=== PATIENT | female | born 1970 | race Caucasian/White ===

== ENCOUNTER 2022-05-23 13:45 | Outpatient (REF) | payer BC, SELFPAY ==
[2022-05-23 13:57] LABS: MANUAL DIFF FLAG NO
[2022-05-23 16:02] LABS: Basophils Percent Auto 0.5 % (0-2); Eosinophils Absolute Auto 0.1 X10*3/uL (0.0-0.4); Eosinophils Percent Auto 1.1 % (0-4); Hematocrit 39.9 % (37.0-47.0); Hemoglobin 12.8 g/dl (12.0-16.0); Imm Gran Abs Auto 0.02 X10*3/uL (0.00-0.03); Imm Gran Pct Auto 0.3 % (0.0-0.4); Lymphocytes Absolute Auto 1.8 X10*3/uL (1.2-4.9); Lymphocytes Percent Auto 24.2 % (20-40); Mean Corpuscular HGB Conc 32.1 g/dl (31.0-35.0); Mean Corpuscular Hemoglobin 28.6 pg (27.0-33.0); Mean Corpuscular Volume 89.3 fL (80.0-98.0); Mean Platelet Volume 10.2 fL (9.4-12.3); Monocytes Absolute Auto 0.5 X10*3/uL (0.1-1.2); Monocytes Percent Auto 7.1 % (2-11); Neutrophils Absolute Auto 5.1 x10*3/uL (2.0-8.3); Neutrophils Percent Auto 66.8 % (45-73); Platelet Count 333 X10*3/uL (160-400); Red Blood Count 4.47 X10*6/uL (4.20-5.50); Red Cell Distribution Width 13.2 % (11.0-16.0); White Blood Count 7.6 X10*3/uL (4.8-10.8)
[2022-05-23 16:28] LABS: Alanine Aminotransferase 15 U/L (0-31); Albumin Level 4.6 g/dL (3.5-5.0); Alkaline Phosphatase 65 U/L (39-117); Anion Gap 17 (12-20); Aspartate Amino Transferase 17 U/L (5-31); Bilirubin Total 0.7 mg/dL (0.0-1.0); Blood Urea Nitrogen 11 mg/dL (9-16); C Reactive Protein 0.33 mg/dL (< or = 0.50); Calcium 9.8 mg/dL (8.4-10.2); Carbon Dioxide 27 mmol/L (22-29); Chloride 99 mmol/L (96-108); Estimated Glomerular Filt Rate > 60; Glucose Random 81 mg/dL (60-115); Potassium 3.7 mmol/L (3.3-5.1); Sodium 139 mmol/L (135-145); Total Protein 7.7 g/dL (6.5-8.0)
== END 2022-05-23 13:46 | disposition home or self-care (01) ==
LOC: HO.LAB 13:45
PROVIDERS: PCP Internal Medicine; Visit Provider Internal Medicine
DX: I10 Essential (primary) hypertension (principal); R19.7 Diarrhea, unspecified; R42 Dizziness and giddiness
CPT/HCPCS: 36415; 80053; 85025; 86140

== ENCOUNTER 2023-01-30 07:23 | Day surgery (SDC) | payer BC, SELFPAY ==
[2023-01-28 09:29] VITALS: BMI 36.0
[2023-01-30 07:43] VITALS: BP 174/85; PULSE 80; RESP 16; TEMP 36.6; O2SAT 99; BMI 36.3
[2023-01-30] MEDS: Lactated Ringers 1,000 ML 100 ML IVCONT (08:13)
--- NOTE | 2023-01-30 08:14 | P.CONAN_ITS ---
HPI - Anesthesia Eval Consult details Narrative: for colonoscopy [facility] Past Medical History Medical History HTN (hypertension) Patient : No Family History Family history of problems with anesthesia: No Surgical History Surgical History Hx of hernia repair Hx of section History of Problems with Anesthesia: No Social History Social History Patient Tobacco Use Status: Never used Tobacco Use of substances other than those prescribed or required for medical reasons: Yes Substance Use Type Other:: marijuana gummies occas. Substance Use Frequency: Occasionally Are you DNR?: No Advance Directives: No Advance Directives Information Provided: Yes Patient : No FDLMP: 01/02/23 Meds Allergies Allergy/AdvReac Type Severity Reaction Status Date / Time Penicillins Allergy Intermediate Rash Verified 01/30/23 07:29 Active Medications: Current Medications Lactated Ringer's (Lr) 1,000 mls @ 100 mls/hr IVCONT .Q10H JUAN MANUEL Last Admin: 01/30/23 08:13 Dose: 100 mls/hr Sodium Biphosphate/Sodium Phosphate (Sodium Phosphate,[place]-Dibasic 133 Ml Enema) 133 ml TX ONCE PRN PRN Reason: Poor Colonoscopy Prep Results Home Medications Medication Instructions Recorded Confirmed Last Taken Type cetirizine 5 mg tablet 5 mg PO DAILY 01/28/23 01/28/23 Unknown History hydrochlorothiazide 12.5 mg tablet 12.5 mg PO DAILY 01/28/23 01/28/23 Unknown History lisinopril 10 mg tablet 10 mg PO DAILY 01/28/23 01/30/23 01/30/23 06:00 History Exam Height,Weight and Vital Signs: Height 5 ft 8 in Weight 108.409 kg Last Vital Signs Temp 97.9 F 01/30/23 07:43 Pulse 80 01/30/23 07:43 Resp 16 01/30/23 07:43 BP 174/85 H 01/30/23 07:43 Pulse Ox 99 01/30/23 07:43 O2 Del Method Room Air 01/30/23 07:43 Airway Mallampati Class: I TM Dist: >3cm Neck ROM: Full Loose/Missing/Broken Teeth: No Heart: ok Lungs: ok Assessment and Plan Assessment Anesthesia Assessment: Anesthesia Plan Discussed and Chart Reviewed Final Anesthetic Review Family History of Problems with Anesthesia: No History of Problems with Anesthesia: No NPO: Yes ASA Class: II Final Preanesthetic Review: No Changes in Pt Med Stat, Meds/Allgs Chart Reviewed, Consent Obtained/Reviewed and Anes Risks/Benef Reviewed Patient Risk: Low Procedure Risk: Low Anesthetic Plan Anesthetic Plan: MAC: and Agree w/ Assess. and Plan Disposition: Standard PACU
[2023-01-30 08:22] LABS: UPreg QC Valid YES; Urine Pregnancy NEGATIVE (NEGATIVE)
--- NOTE | 2023-01-30 09:21 | PM.OP ---
Brief Operative Note Date of Service: 01/30/23 Pre-op diagnosis: Screening Post-op diagnosis: other (Colon polyps) Procedure: Colonoscopy to the cecum and TI with cold snare polypectomy x 2, and bx/removal of polyp Surgeon: Garth Sanchez MD Anesthesia: MAC Was an Medical Lead used for this Procedure?: No Estimated blood loss (mL): 2.0 Pathology: other (A. Transverse colon polyp B. Polyp at 20cm C. Rectal polyp) Condition: stable Disposition: PACU
[2023-01-30 09:24] VITALS: BP 131/73; PULSE 78; RESP 18; TEMP 36.2; O2SAT 97
[2023-01-30 09:39] VITALS: BP 138/68; PULSE 67; RESP 18; TEMP 37.1; O2SAT 96
--- NOTE | 2023-01-30 10:12 | OP_ITS ---
DATE OF SERVICE: 01/30/2023 SURGEON: Garth Sanchez MD INDICATIONS: The patient presents for evaluation of colorectal cancer screening. Full consent has been obtained from her for this, including risks of bleeding and perforation. PREOPERATIVE DIAGNOSIS: Colorectal cancer screening. POSTOPERATIVE DIAGNOSIS: PROCEDURE PERFORMED: Colonoscopy to the cecum and terminal ileum with cold snare polypectomy x 2, and biopsy and removal of polyp. ESTIMATED BLOOD LOSS: COMPLICATIONS: ANESTHESIA: Monitored anesthesia care. ASSISTANTS: SPECIMENS: POSTOPERATIVE DIAGNOSES: Colorectal cancer screening, small colon polyps, mild sigmoid diverticulosis, small internal hemorrhoids. DESCRIPTION OF PROCEDURE: The patient was placed in the left lateral decubitus position. The digital rectal exam revealed no abnormalities. The Olympus video pediatric colonoscope was entered into the rectum and advanced easily to the cecum. Once in the cecum, I did identify normal-appearing cecal pouch with appendiceal orifice and a normal-appearing ileocecal valve. The terminal ileum was cannulated and appeared normal. The scope was withdrawn back in the colon. The entire cecum and ileocecal valve appeared normal. The scope was slowly withdrawn assessing all mucosal surfaces carefully. Preparation was excellent. In the transverse colon was a flat, but raised approximately 6 mm polyp, which was removed by cold snare polypectomy and recovered by suction. The polypectomy site appeared clean, without any sign of residual polyp nor significant bleeding. At 20 cm was an approximately 6 mm polyp, which was removed by cold snare polypectomy and recovered by suction. The polypectomy site appeared clean, without any sign of residual polyp nor bleeding. In the rectum was a flat 3 mm polyp, which was biopsied and completely removed with a cold biopsy forceps. I did not visualize any other polyps, colitis, nor angiodysplasia. There was a mild amount of sigmoid diverticulosis. In the rectum, scope was retroflexed visualizing internal hemorrhoids, but no other pathology. The rectal mucosa appeared normal. The scope was straightened and withdrawn from the patient. She tolerated the procedure well and was returned to the recovery area in stable condition. IMPRESSION: 1. Small colon polyps. 2. Mild diverticulosis. 3. Small internal hemorrhoids. PLAN: The results of the pathology will be checked. If any of these are tubular adenomas, I would recommend a followup coloscopy in 5 years. If they are all only hyperplastic, I would recommend a followup closely in 10 years. She was advised not to use any aspirin and NSAIDs for 1 week. She will otherwise see me on a p.r.n. basis. This has been discussed with her . MD DARRICK Schroeder/LOKI / [id number] MTDD
== END 2023-01-30 10:20 | disposition home or self-care (01) ==
PROVIDERS: Anesthesiology; PCP Internal Medicine; Visit Provider Internal Medicine
PROC: 0DJD8ZZ Inspection of Lower Intestinal Tract, Via Natural or Artificial Opening Endoscopic (ICD-10-PCS; CPT 45378; principal; 2023-01-30 08:30)
DX: Z12.11 Encounter for screening for malignant neoplasm of colon (principal); D12.3 Benign neoplasm of transverse colon; D12.5 Benign neoplasm of sigmoid colon; K62.1 Rectal polyp; K57.30 Diverticulosis of large intestine without perforation or abscess without bleeding; K64.8 Other hemorrhoids; I10 Essential (primary) hypertension; Z79.899 Other long term (current) drug therapy
CPT/HCPCS: 45385; 45380; 81025; 88305; J2704; J3010

== ENCOUNTER 2024-08-10 10:11 | Outpatient (AMB) | payer BC, SELFPAY ==
--- NOTE | 2024-08-10 10:11 | MHC.PC.OV ---
Vital Signs 08/10/24 10:17 08/10/24 10:33 Height 5 ft 8 in Weight 112.491 kg BMI 37.7 BP 160/92 H 150/86 H Respiration 16 Pulse 65 Pulse Source Pulse Oximeter Temp 97.9 F Temp Source Temporal Artery Scan Pulse Oximetry (%) 98 Oxygen Delivery Method Room Air Intake Visit Reasons: Routine Criminal Lawyer Required: No Accompanied by: Self / Same As Patient Allergies Penicillins Allergy (Intermediate, Verified 08/10/24 10:17) Rash Medication List - Last Reconciled 08/10/24 by MALU Serrano cetirizine 5 mg PO DAILY hydrochlorothiazide 12.5 mg PO DAILY lisinopril 10 mg PO DAILY HPI HPI Comments History of Present Illness Details 54-year-old female with history of hypertension, hyperlipidemia, severe obesity with BMI > 37 presents to the office today for management of chronic conditions and to establish care. Hypertension-compliant with hydrochlorothiazide and lisinopril, however has been out of medication about 5 days. BP 160/92. Checks at home and is typically within range. Asymptomatic. Hyperlipidemia-not on statin. Last total cholesterol 230, LDL 149. Class 2 obesity-BMI 37. Not working on weight loss efforts. Concerns: None Health maintenance: Last screening mammogram-utd per pt. Upcoming [facility] Last PAP smear- [facility] obgyn, upcoming appt scheduled. UTD per pt, no hx abn pap Last colonoscopy-01/2023 with pathology report showing tubular adenoma x2, 5 year follow-up advised. Dr. Sanchez ROS: General: No fevers, malaise, unintentional weight loss HEENT: No blurred vision, diplopia. No sore throat, nasal congestion, rhinorrhea, sinus pain, ear pain Cardiovascular: No chest pain, palpitations, or leg edema Respiratory: No shortness of breath, wheezing, cough MSK: No myalgia, back pain Neuro: No headaches, weakness, paresthesias Skin: No rashes or lesions EXAM: Constitutional - Awake and Alert, No apparent distress Eyes - PERRL Cardiovascular - S1S2, RRR, No edema Respiratory - Normal lung expansion, Normal respiratory effort, No respiratory distress, CTA bilaterally Extremities - no calf tenderness bilaterally, no swelling Skin - Warm/Dry Neurological - Alert & oriented x3 Psychological - Appropriate affect [facility] Medical History (Updated 08/10/24 @ 10:37 by MALU Serrano) Obesity Hyperlipidemia HTN (hypertension) Surgical History Hx of hernia repair Hx of section Social History Patient Tobacco Use Status: Never used Tobacco Questionnaire PHQ-9 Over the last 2 weeks, how often have you been bothered by any of the following problems? 1. Little interest or pleasure in doing things: not at all 2. Feeling down, depressed, or hopeless: not at all 3. Trouble falling or staying asleep, or sleeping too much: several days 4. Feeling tired or having little energy: several days 5. Poor appetite or overeating: several days 6. Feeling bad about yourself - or that you are a failure or have let yourself or your family down: not at all 7. Trouble concentrating on things, such as reading the newspaper or watching television: not at all 8. Moving or speaking so slowly that other people could have noticed. Or the opposite - being so fidgety or restless that you have been moving around a lot more than usual: not at all 9. Thoughts that you would be better off or of hurting yourself in some way: not at all Total score: 3 Source: Developed by Drs. Garth He, Shira Claudio, Edvin Staples and colleagues, with an educational carmela from [employer]. Thrive Questionnaire I am a: Patient What is your living situation today?: I have a steady place to live Within the past 12 months, did the food you bought not last and you didn't have the money to get more?: Never true Within the past 12 months, did you worry whether your food would run out before you got money to buy more?: Never true Do you have trouble paying for medicines?: No Do you have trouble getting transportation to medical appointments?: No Do you have trouble paying your heating and electricity bill?: No Do you have trouble taking care of your child, family member or friend?: No Do you have trouble with day-to-day activities such as bathing, preparing meals, shopping, managing finances, etc.?: No Are you currently unemployed and looking for a job?: No Are you interested in more education?: No Please select the resources that you would like help with: None THRIVE Score: 0 WALLY-7 AMB Questionnaire WALLY-7 Date WALLY - 7 assessed: 08/10/24 Feeling nervous, anxious, or on edge: 0 = Not at all Not being able to stop or control worryin = Not at all Worrying too much about different things: 0 = Not at all Trouble relaxin = Not at all Being so restless that it is hard to sit still: 0 = Not at all Becoming easily annoyed or irritable: 0 = Not at all Feeling afraid as if something awful might happen: 0 = Not at all Total WALLY-7 score (0-4 normal; 5-9 mild; 10-14 moderate; 15-21 severe): 0 Source: Developed by Drs. Garth He, Shira Claudio, Edvin Staples and colleagues, with an educational carmela from [employer]. Physical exam (Primary Care) Vital Signs: Last Vital Signs Temp 97.9 F 08/10/24 10:17 Pulse 65 08/10/24 10:17 Resp 16 08/10/24 10:17 BP 160/92 H 08/10/24 10:17 Pulse Ox 98 08/10/24 10:17 Oxygen Delivery Method Room Air 08/10/24 10:17 BMI result Body Mass Index 37.7 Tobacco/Smoking Status: Tobacco use Status Patient Tobacco Use Status Never used Tobacco 08/10/24 10:11 PHQ-9: PHQ-9 Score PHQ-9: Total score 3 08/10/24 10:22 Coding Level of Care Code New Pt Level 4 (28487) Complex EM visit Add On G2211 Diagnoses HTN (hypertension) I10 Hyperlipidemia E78.5 Obesity E66.9 Menopausal symptom N95.1 Assessment & Plan Assessment & Plan (1) HTN (hypertension): Code(s): I10 - Essential (primary) hypertension Category: Medical Plan: Uncontrolled blood pressure on recheck 150/86. Refills of hydrochlorothiazide and lisinopril provided. Check renal function and electrolyte levels (2) Hyperlipidemia: Code(s): E78.5 - Hyperlipidemia, unspecified Category: Medical Plan: Lipid panel ordered. ASCVD risk score to be calculated pending results of studies. (3) Obesity: Code(s): E66.9 - Obesity, unspecified Category: Medical Plan: Weight loss efforts encouraged. Check TSH (4) Menopausal symptom: Code(s): N95.1 - Menopausal and female climacteric states Category: Medical Plan: Vitamin-D level ordered Plan Follow-up in the office in 6 months. Check BPs at home and call readings into office on saturday. Should levels remain elevated, consider dose adjustment. Labs to be completed following visit today as well as several days prior to next visit. Orders: Orders Basic Metabolic Panel Today E66.9 - Obesity, unspecified, E78.5 - Hyperlipidemia, unspecified, I10 - Essential (primary) hypertension, N95.1 - Menopausal and female climacteric states Hemoglobin A1c Today E66.9 - Obesity, unspecified, E78.5 - Hyperlipidemia, unspecified, I10 - Essential (primary) hypertension, N95.1 - Menopausal and female climacteric states Ferritin Today E66.9 - Obesity, unspecified, E78.5 - Hyperlipidemia, unspecified, I10 - Essential (primary) hypertension, N95.1 - Menopausal and female climacteric states Lipid Panel Today E66.9 - Obesity, unspecified, E78.5 - Hyperlipidemia, unspecified, I10 - Essential (primary) hypertension, N95.1 - Menopausal and female climacteric states Liver Panel Today E66.9 - Obesity, unspecified, E78.5 - Hyperlipidemia, unspecified, I10 - Essential (primary) hypertension, N95.1 - Menopausal and female climacteric states Basic Metabolic Panel 6 Months E78.5 - Hyperlipidemia, unspecified, I10 - Essential (primary) hypertension Lipid Panel 6 Months E78.5 - Hyperlipidemia, unspecified, I10 - Essential (primary) hypertension TSH reflex Free T4 Today E66.9 - Obesity, unspecified, E78.5 - Hyperlipidemia, unspecified, I10 - Essential (primary) hypertension, N95.1 - Menopausal and female climacteric states Vitamin D 25-OH Total Today E66.9 - Obesity, unspecified, E78.5 - Hyperlipidemia, unspecified, I10 - Essential (primary) hypertension, N95.1 - Menopausal and female climacteric states Medications: Refilled hydrochlorothiazide 12.5 mg PO DAILY 90 tabs 1RF lisinopril 10 mg PO DAILY 90 tabs 1RF
[2024-08-10 10:17] VITALS: BP 160/92; PULSE 65; RESP 16; TEMP 36.6; O2SAT 98; BMI 37.7
[2024-08-10 10:33] VITALS: BP 150/86
--- OUTSIDE RECORDS SUMMARY | 2024-08-10 11:18 | XMS_ITS | Patient Health Record ---
Author Organization [facility] Address [address] [place] [id number] Care Team Providers Care Detective Lieutenant Name Role Phone Errol Gutierrez MD Primary Care Provider Garth Velasquez Unavailable [phone] Allergies No Known Allergies Reason For Referral No Information Medications Medication SIG (Take, Route, Frequency, Duration) Notes Start Date End Date Status ZyrTEC 5 MG 1 tablet Orally Once a day for 30 day(s) 11/07/2022 Active hydroCHLOROthiazide 12.5 MG TAKE ONE TAB LET BY MOUTH EVERY DAY Oral for 30 Active Lisinopril 10 MG TAKE ONE TABLET BY M OUTH EVERY DAY Oral for 90 Active Immunizations Vaccine Route Administration Date Status Comme nts Influenza Unknown 01/09/2022 Administered Social History Tobacco Use: Social History Observation Description Date Details (start date - stop date) Never Smoker NA - NA Tobacco Use/Smoking Question Answer Notes Patient is a nonsmoker Alcohol Screen Question Answer Notes Did you have a drink contain ing alcohol in the past year? Yes How often did you have a dri nk containing alcohol in the past year? 2 to 3 times a week (3 points) How many drinks did you have on a typical day when you were drinking in the past year? 1 or 2 drinks (0 point) How often did you have 6 or more drinks on one occasion in the past year? Never (0 point) Points 3 Interpretation Positive Section Notes: Occ alcohol on the weekends, Nonsmoker Problems Problem Type SNOMED Code ICD Code Onset Dates Problem Status W/U Status Risk Notes Problem 127955757 Colon cancer screening (Z12.11) Active confirmed Problem Diverticulosis o f large intestine without perforation or abscess without bleeding (K57.30) Active confirmed Problem [id number] Pre-procedural examination (Z01.818) Active confirmed Plan Of Treatment Future Test Test Name Order Date COLONOSCOPY 11/07/2022 Insurance Providers Payer Name Payer Address Payer Phone Subscriber Number Group Number Insured Name Patient Relationship to Insured Coverage Start Date Coverage End Date [facility] [address] [place] [address] [phone] [id number] NEEL CALDERÓN Self - patient is the insured Medical (General) History Medical History History ICD Code HTN Denies [place],DM,CVA,Lung disease,renal dise ase Surgical History Surgery Date(Month/Year) C-sections 1990, 2003 Incisional hernia repair 2016
== END 2024-08-10 10:38 | disposition home or self-care (01) ==
LOC: HO.HMCHD 10:11
PROVIDERS: PCP Internal Medicine; Visit Provider Physician Assistant
DX: I10 Essential (primary) hypertension (principal); E78.5 Hyperlipidemia, unspecified; E66.9 Obesity, unspecified; N95.1 Menopausal and female climacteric states

== ENCOUNTER 2025-02-08 09:05 | Outpatient (AMB) | payer OTHER, SELFPAY ==
--- NOTE | 2025-02-08 09:18 | MHC.PC.OV ---
Vital Signs 02/08/25 09:21 Height 5 ft 8 in Weight 111.13 kg BMI 37.2 BP 132/84 Blood Pressure Location Lt brachial Respiration 16 Pulse 60 Pulse Source Pulse Oximeter Temp 97.6 F Temp Source Temporal Artery Scan Pulse Oximetry (%) 99 Oxygen Delivery Method Room Air Intake Visit Reasons: 6 Month F/u Director Product Development Required: No Accompanied by: Self / Same As Patient Allergies Penicillins Allergy (Intermediate, Verified 02/08/25 09:19) Rash Medication List - Last Reconciled 02/08/25 by MALU Serrano cetirizine 5 mg PO DAILY hydrochlorothiazide 25 mg PO DAILY lisinopril 10 mg PO DAILY Tobacco use date assessed: 02/08/25 Dental Screening Dental Screen Date: 02/08/25 Did you have a dental visit in the last 12 months?: Yes Did you have a dental problem in the last 6 months where you did not have access to dental care?: No Was dental information given to patient?: Patient has dentist HPI HPI Comments History of Present Illness Details 54-year-old female with history of hypertension, hyperlipidemia, severe obesity with BMI > 37 presents to the office today for management of chronic conditions. Hypertension-compliant with hydrochlorothiazide and lisinopril. BP 132/84. Checks at home and is typically within range. Asymptomatic. Hyperlipidemia-not on statin. Last total cholesterol 230, LDL 149. Class 2 obesity-BMI 37. Not working on weight loss efforts. Concerns: Need weight management appt, had cancelled due to appt issues due to malignancy Obesity- BMI 37.3. Exercising with [employer] light weights. Goal to get to gym for swimming. She has been also following a healthy diet Concerns: None Health maintenance: Last screening mammogram-utd per pt. Upcoming scheduled at [facility] in the next several weeks Last PAP smear- [facility] obgyn, appt scheduled. Last colonoscopy-01/2023 with pathology report showing tubular adenoma x2, 5 year follow-up advised. Dr. Sanchez ROS: General: No fevers, malaise, unintentional weight loss HEENT: No blurred vision, diplopia. No sore throat, nasal congestion, rhinorrhea, sinus pain, ear pain Cardiovascular: No chest pain, palpitations, or leg edema Respiratory: No shortness of breath, wheezing, cough MSK: No myalgia, back pain Neuro: No headaches, weakness, paresthesias Skin: No rashes or lesions EXAM: Constitutional - Awake and Alert, No apparent distress Eyes - PERRL Cardiovascular - S1S2, RRR, No edema Respiratory - Normal lung expansion, Normal respiratory effort, No respiratory distress, CTA bilaterally Extremities - no calf tenderness bilaterally, no swelling Skin - Warm/Dry Neurological - Alert & oriented x3 Psychological - Appropriate affect [facility] Medical History (Updated 08/25/24 @ 10:41 by MALU Serrano) Sleep apnea Obesity Hyperlipidemia HTN (hypertension) Surgical History Hx of hernia repair Hx of section Social History Housing: House Patient Tobacco Use Status: Never used Tobacco e-Cigarette/Vaping Use: Never Used service: No Current occupational status: employed Current occupation: Health care education Cognitive needs: No Hearing needs: No Vision needs: Yes (Rx glasses) Questionnaire WALLY-7 AMB Questionnaire WALLY-7 Date WALLY - 7 assessed: 08/10/24 Source: Developed by Drs. Garth He, Shira Claudio, Edvin Staples and colleagues, with an educational carmela from [employer]. Physical exam (Primary Care) Vital Signs: Last Vital Signs Temp 97.6 F 02/08/25 09:21 Pulse 60 02/08/25 09:21 Resp 16 02/08/25 09:21 BP 132/84 02/08/25 09:21 Pulse Ox 99 02/08/25 09:21 Oxygen Delivery Method Room Air 02/08/25 09:21 BMI result Body Mass Index 37.2 Tobacco/Smoking Status: Tobacco use Status Tobacco use date assessed 02/08/25 02/08/25 09:23 Patient Tobacco Use Status Never used Tobacco 02/08/25 09:23 e-Cigarette/Vaping Use Never Used 02/08/25 09:23 Coding Level of Care Code Est Pt Level 4 (92160) Add On Problem Visit Only Diagnoses HTN (hypertension) I10 Hyperlipidemia E78.5 Obesity E66.9 Sleep apnea G47.30 Assessment & Plan Assessment & Plan (1) HTN (hypertension): Code(s): I10 - Essential (primary) hypertension Category: Medical Plan: Controlled. Continue lisinopril and hydrochlorothiazide (2) Hyperlipidemia: Code(s): E78.5 - Hyperlipidemia, unspecified Category: Medical Plan: Overdue for labs. Last LDL 149 from 2019. Diet low in saturated fats and highly processed foods (3) Obesity: Code(s): E66.9 - Obesity, unspecified Category: Medical Plan: Encouraged weight loss efforts. Recommend diet with calorie deficit with increased protein, fruits, vegetables and limiting refined sugars, simple carbohydrates, saturated fats, highly processed foods. Recommend 150 minutes of moderate intensity exercise weekly. Will attempt tirzepatide from [employer]. Patient is counseled that this is out of pocket. She is also referred to weight management (4) Sleep apnea: Code(s): G47.30 - Sleep apnea, unspecified Category: Medical Plan: Continue with CPAP Plan Follow-up in the office in 6 months, sooner if needed. Labs as ordered for today as well as several days prior to next visit Orders: Orders Basic Metabolic Panel 6 Months E66.9 - Obesity, unspecified, E78.5 - Hyperlipidemia, unspecified, G47.30 - Sleep apnea, unspecified, I10 - Essential (primary) hypertension Lipid Panel 6 Months E66.9 - Obesity, unspecified, E78.5 - Hyperlipidemia, unspecified, G47.30 - Sleep apnea, unspecified, I10 - Essential (primary) hypertension Medications: New tirzepatide (weight loss) 2.5 mg (0.5 mL) subcut QWEEK 2 mL 0RF 4 weeks
[2025-02-08 09:21] VITALS: BP 132/84; PULSE 60; RESP 16; TEMP 36.4; O2SAT 99; BMI 37.2
--- OUTSIDE RECORDS SUMMARY | 2025-02-08 09:58 | XMS_ITS | Patient Health Record ---
Author Organization [facility] Address [address] [place] [id number] Care Team Providers Care Tunnel Mucker Name Role Phone Brenda (RETIRED) Errol ODELL Primary Care Provide r Unavailable Garth Sanchez Unavailable [phone] Allergies No Known Allergies Reason For Referral No Information Medications Medication SIG (Take, Route, Frequency, Duration) Notes Start Date End Date Status ZyrTEC 5 MG Tablet 1 tablet Orally Once a day; Duration: 30 day(s) 11/07/2022 Active hydroCHLOROthiazide 12.5 MG Tablet TAKE ONE TABLET BY MOUTH EVERY DAY Oral; Duration: 30 Active Lisinopril 10 MG Tablet TAKE ONE TABLET BY MOUTH EVERY DAY Oral; Duration: 90 Active Immunizations Vaccine Route Administration Date Status Comme nts Influenza Unknown 01/09/2022 Administered Social History Tobacco Use: Social History Observation Description Date Details (start date - stop date) Never Smoker NA - NA Social History Drugs/Alcohol: Social Info Question Answer Notes Alcohol Screen Did you have a drink containing alcohol in the past year? Yes How often did you have a drink containing alcohol in the past year? 2 to 3 times a week (3 points) How many drinks did you have on a typical day when you were drinking in the past year? 1 or 2 drinks (0 point) How often did you have 6 or more drinks on one occasion in the past year? 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 Section Notes: Occ alcohol on the weekends, Nonsmoker Problems Problem Type SNOMED Code ICD Code Onset Dates Problem Status W/U Status Risk Notes Problem Colon cancer screening (093685821) Colon cancer screening (Z12.11) Active confirmed Problem Diverticular disease of colon (775051195) Diverticulosis of large intestine without perforation or abscess without bleeding (K57.30) Active confirmed Problem Pre-procedure evaluation check (249274924) Pre-procedural examination (Z01.818) Active confirmed Plan Of Treatment Future Test Test Name Order Date COLONOSCOPY 11/07/2022 Insurance Providers Payer Name Payer Address Payer Phone Subscriber Number Group Number Insured Name Patient Relationship to Insured Coverage Start Date Coverage End Date [facility] [address] [place] [address] [phone] [id number] NEEL CALDERÓN Self - patient is the insured Medical (General) History Medical History History ICD Code HTN Denies VA,DM,CVA,Lung disease,renal dise ase Surgical History Surgery Date(Month/Year) C-sections 1990, 2003 Incisional hernia repair 2016
== END 2025-02-08 09:58 | disposition home or self-care (01) ==
LOC: HO.HMCHD 09:06
PROVIDERS: PCP Internal Medicine; Visit Provider Physician Assistant
DX: I10 Essential (primary) hypertension (principal); E78.5 Hyperlipidemia, unspecified; E66.9 Obesity, unspecified; G47.30 Sleep apnea, unspecified

== ENCOUNTER 2025-02-08 09:05 | Outpatient (REF) | payer OTHER, SELFPAY ==
[2025-02-08 13:48] LABS: Alanine Aminotransferase 27 U/L (0-31); Albumin Level 4.4 g/dL (3.5-5.0); Alkaline Phosphatase 73 U/L (39-117); Anion Gap 13 (12-20); Aspartate Amino Transferase 22 U/L (5-31); Blood Urea Nitrogen 19 mg/dL (9-16); Calcium 9.4 mg/dL (8.4-10.2); Carbon Dioxide 27 mmol/L (22-29); Chloride 107 mmol/L (96-108); Estimated Glomerular Filt Rate > 60; Potassium 4.0 mmol/L (3.3-5.1); Sodium 143 mmol/L (135-145); Total Protein 7.1 g/dL (6.5-8.0)
== END 2025-02-08 09:06 | disposition home or self-care (01) ==
LOC: HO.10HDL 09:05
PROVIDERS: PCP Internal Medicine; Visit Provider Physician Assistant
DX: I10 Essential (primary) hypertension (principal); N95.1 Menopausal and female climacteric states; E66.9 Obesity, unspecified; E78.5 Hyperlipidemia, unspecified; G47.30 Sleep apnea, unspecified; Z13.1 Encounter for screening for diabetes mellitus
CPT/HCPCS: 36415; 80048; 80076; 82306; 83036; 84443